=== PATIENT | male | born 1995 | race Caucasian/White ===

== ENCOUNTER 2016-05-31 15:36 | Emergency (ER) | payer OTHER | END 2016-05-31 22:45 | disposition short-term general hospital (02) | LOC: ER 15:36 | DX: R11.2 Nausea with vomiting, unspecified (principal); R19.7 Diarrhea, unspecified; R10.9 Unspecified abdominal pain; F17.210 Nicotine dependence, cigarettes, uncomplicated ==

== ENCOUNTER 2016-06-03 10:13 | Emergency (ER) | payer OTHER | END 2016-06-03 11:51 | disposition home or self-care (01) | LOC: ER 10:13 | DX: R11.2 Nausea with vomiting, unspecified (principal); R19.7 Diarrhea, unspecified; F17.210 Nicotine dependence, cigarettes, uncomplicated; K20.9 Esophagitis, unspecified; Z87.19 Personal history of other diseases of the digestive system; Z79.899 Other long term (current) drug therapy ==